=== PATIENT | female | born 1975 | race Caucasian/White ===

== ENCOUNTER 2017-11-05 12:20 | Emergency (ER) | payer SELFPAY ==
[2017-11-05] MEDS ORDERED: Albuterol 0.083% 2.5 MG/3 ML Neb Soln NEB ONE (13:12)
--- NOTE | 2017-11-05 13:16 | EDM.PDOC ---
ED HPI GENERAL MEDICAL PROBLEM - General Chief Complaint: Respiratory Problem Stated Complaint: SOB Time Seen by Provider: 11/05/17 13:05 Source of Information: Reports: Patient History Limitations: Reports: No Limitations - History of Present Illness INITIAL COMMENTS - FREE TEXT/NARRATIVE: Patient is a 41-year-old female with one-day history of sinus congestion, runny nose, productive cough, wheezing, and shortness of breath. States she's been unable to sleep throughout the night due to the shortness of breath. This is worse with activity. States her daughter had similar symptoms that were not as severe. Patient's had no documented fever. No change in appetite. Sore throat minimal. She does admit to smoking 4 cigarettes a day. Patient did take a prescription antibiotic from [place] yesterday. She believes she has bronchitis. She denies any documented fever, chest pain, nausea vomiting, abdominal pain, dysuria, and pain to lower extremities with swelling. She has no history of DVT or PE. 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 ED EXAM, GENERAL - Physical Exam Exam: See Below Exam Limited By: No Limitations General Appearance: Alert, WD/WN, No Apparent Distress Eye Exam: Bilateral Eye: Normal Inspection Ears: Hearing Grossly Normal Nose: Normal Inspection Throat/Mouth: Normal Inspection, Normal Oropharynx, Normal Voice, No Airway Compromise Neck: Normal Inspection, Supple, Non-Tender, Full Range of Motion Respiratory/Chest: No Respiratory Distress, Lungs Clear, Normal Breath Sounds, No Accessory Muscle Use, Chest Non-Tender Cardiovascular: Normal Peripheral Pulses, Tachycardia Peripheral Pulses: 4+: Radial (L), Radial (R) GI/Abdominal: Normal Bowel Sounds, Soft, Non-Tender, No Organomegaly, No Distention Back Exam: Normal Inspection Extremities: Normal Inspection, Normal Range of Motion, Non-Tender, No Pedal Edema Neurological: Alert, Oriented, CN II-XII Intact, Normal Cognition, No Motor/ Sensory Deficits Psychiatric: Normal Affect, Normal Mood Skin Exam: Warm, Dry, Intact, Normal Color, No Rash Course - Vital Signs Last Recorded V/S: Last Vital Signs Temp 99.0 F 11/05/17 18:33 Pulse 102 H 11/05/17 18:33 Resp 18 11/05/17 18:33 BP 157/104 H 11/05/17 18:33 Pulse Ox 90 L 11/05/17 18:33 - Orders/Labs/Meds Orders: Active Orders 24 hr Category Date Time Status EKG 12 Lead [EKG Documentation Completion] [RC] STAT Care 11/05/17 13:56 Active Peripheral IV Care [RC] . DIRECTED Care 11/05/17 13:55 Active RT Aerosol Therapy [RC] ASDIRECTED Care 11/05/17 13:12 Active RT Aerosol Therapy [RC] ASDIRECTED Care 11/05/17 13:40 Active CXR [Chest 2V] [CR] Stat Exams 11/05/17 13:12 Taken PE Chest [Ang Chest] [CT] Stat Exams 11/05/17 16:27 Taken CULTURE BLOOD [BC] Stat Lab 11/05/17 14:15 Received CULTURE BLOOD [BC] Stat Lab 11/05/17 14:23 Received CULTURE SPUTUM + SMEAR [RM] Stat Lab 11/05/17 18:25 Ordered UA W/MICROSCOPIC [URIN] Stat Lab 11/05/17 13:56 Ordered Blood Culture x2 Reflex Set [OM.PC] Stat Oth 11/05/17 13:55 Ordered Peripheral IV Insertion Adult [OM.PC] Routine Oth 11/05/17 13:55 Ordered Labs: Laboratory Tests 11/05/17 11/05/17 11/05/17 Range/Units 14:15 14:15 14:15 WBC 17.79 H (3.98-10.04) K/mm3 RBC 5.13 (3.98-5.22) M/mm3 Hgb 13.4 (11.2-15.7) gm/L Hct 39.9 (34.1-44.9) % MCV 77.8 L (79.4-94.8) fl MCH 26.1 (25.6-32.2) pg MCHC 33.6 (32.2-35.5) g/dl RDW Std Deviation 42.0 (36.4-46.3) fL Plt Count 233 (182-369) K/mm3 MPV 10.8 (9.4-12.3) fl Neutrophils % (Manual) 74 H (40-60) % Band Neutrophils % 0 (0-10) % Lymphocytes % (Manual) 22 (20-40) % Atypical Lymphs % 0 % Monocytes % (Manual) 4 (2-10) % Eosinophils % (Manual) 0 L (0.7-5.8) % Basophils % (Manual) 0 L (0.1-1.2) Platelet Estimate Adequate RBC Morph Comment Normal D-Dimer, Quantitative (0.19-0.50) mg/L Sodium 137 (136-145) mEq/L Potassium 3.4 L (3.5-5.1) mEq/L Chloride 101 (98-107) mEq/L Carbon Dioxide 26 (21-32) mEq/L Anion Gap 13.4 (5-15) BUN 9 (7-18) mg/dL Creatinine 0.8 (0.55-1.02) mg/dL Est Cr Clr Drug Dosing 73.93 mL/min Estimated GFR (MDRD) > 60 (>60) mL/min BUN/Creatinine Ratio 11.3 L (14-18) Glucose 109 H (74-106) mg/dL Lactic Acid 2.4 H (0.4-2.0) mmol/L Calcium 8.9 (8.5-10.1) mg/dL Total Bilirubin 0.5 (0.2-1.0) mg/dL AST 23 (15-37) U/L ALT 39 (14-59) U/L Alkaline Phosphatase 131 H (46-116) U/L Total Protein 8.2 (6.4-8.2) g/dl Albumin 3.4 (3.4-5.0) g/dl Globulin 4.8 gm/dL Albumin/Globulin Ratio 0.7 L (1-2) HCG, Qual (NEGATIVE) Mycoplasma pneumon IgM (NEGATIVE) 11/05/17 11/05/17 11/05/17 Range/Units 14:15 14:23 14:23 WBC (3.98-10.04) K/mm3 RBC (3.98-5.22) M/mm3 Hgb (11.2-15.7) gm/L Hct (34.1-44.9) % MCV (79.4-94.8) fl MCH (25.6-32.2) pg MCHC (32.2-35.5) g/dl RDW Std Deviation (36.4-46.3) fL Plt Count (182-369) K/mm3 MPV (9.4-12.3) fl Neutrophils % (Manual) (40-60) % Band Neutrophils % (0-10) % Lymphocytes % (Manual) (20-40) % Atypical Lymphs % % Monocytes % (Manual) (2-10) % Eosinophils % (Manual) (0.7-5.8) % Basophils % (Manual) (0.1-1.2) Platelet Estimate RBC Morph Comment D-Dimer, Quantitative 1.45 H (0.19-0.50) mg/L Sodium (136-145) mEq/L Potassium (3.5-5.1) mEq/L Chloride (98-107) mEq/L Carbon Dioxide (21-32) mEq/L Anion Gap (5-15) BUN (7-18) mg/dL Creatinine (0.55-1.02) mg/dL Est Cr Clr Drug Dosing mL/min Estimated GFR (MDRD) (>60) mL/min BUN/Creatinine Ratio (14-18) Glucose (74-106) mg/dL Lactic Acid (0.4-2.0) mmol/L Calcium (8.5-10.1) mg/dL Total Bilirubin (0.2-1.0) mg/dL AST (15-37) U/L ALT (14-59) U/L Alkaline Phosphatase (46-116) U/L Total Protein (6.4-8.2) g/dl Albumin (3.4-5.0) g/dl Globulin gm/dL Albumin/Globulin Ratio (1-2) HCG, Qual Negative (NEGATIVE) Mycoplasma pneumon IgM Negative (NEGATIVE) Meds: Medications Discontinued Medications Generic Name Dose Route Start Last Admin Trade Name Freq PRN Reason Stop Dose Admin Acetaminophen 975 mg 11/05/17 14:24 11/05/17 14:35 Tylenol PO 11/05/17 14:25 975 mg NOW ONE Administration Albuterol 2.5 mg 11/05/17 13:12 11/05/17 13:25 Proventil Neb Soln NEB 11/05/17 13:13 2.5 mg ONETIME ONE Administration Albuterol/Ipratropium 3 ml 11/05/17 13:40 11/05/17 13:57 Duoneb 3.0-0.5 Mg/3 Ml NEB 11/05/17 13:41 3 ml ONETIME ONE Administration Azithromycin 500 mg 11/05/17 17:53 11/05/17 18:37 Zithromax PO 11/05/17 17:54 500 mg DAILY ONE Administration Ceftriaxone Sodium 1 gm/ 0 gm 11/05/17 18:00 11/05/17 18:35 Lidocaine HCl 2.1 ml IM 1 inj Q24H ANH Administration Sodium Chloride 2,000 mls @ 999 mls/hr 11/05/17 13:55 11/05/17 14:37 Normal Saline IV 11/05/17 15:55 999 mls/hr ONETIME ONE Administration Sodium Chloride 100 mls @ 60 mls/hr 11/05/17 16:45 11/05/17 17:02 Normal Saline IV 60 mls/hr ASDIRECTED ANH Administration Iopamidol 100 ml 11/05/17 16:44 11/05/17 17:02 Isovue-370 (76%) IVPUSH 11/05/17 16:45 100 ml ONETIME ONE Administration Iopamidol 50 ml 11/05/17 16:57 11/05/17 17:02 Isovue-370 (76%) IVPUSH 11/05/17 16:58 50 ml ONETIME ONE Administration Prednisone 40 mg 11/05/17 13:40 11/05/17 13:49 Prednisone PO 11/05/17 13:41 40 mg ONETIME ONE Administration Sodium Chloride 10 ml 11/05/17 13:55 11/05/17 14:23 Saline Flush FLUSH 10 ml ASDIRECTED PRN Administration Keep Vein Open Sodium Chloride 10 ml 11/05/17 16:44 06/30/18 17:01 Saline Flush FLUSH 11/05/17 16:45 10 ml ONETIME ONE Administration - Re-Assessments/Exams Free Text/Narrative Re-Assessment/Exam: Ordered albuterol neb treatment and also chest x-ray two-view. Reassessment, no significant improvements note. Lungs sounds revealed more air being moved. I have spoken with respiratory and they will administer duoneb in 15 to 30 minutes. I have ordered prednisone and duoneb. Chest x-ray two-view impression: no acute findings. No findings concerning for pneumonia. Reviewed with Dr. Lew. Per nursing staff temp recheck: 101.1F. Prednisone was administered prior to checking. Patient was afebrile when I evaluated the patient. VSS. Suspected this was viral in etiology. I will order basic labs, ekg, and IV fluids. Labs to include: CBC, chem 14, blood cultures 2, lactic acid, UA, chest x-ray, EKG, and hCG. She is tachycardic. Complaining shortness of breath. I also ordered a d-dimer. 11/05/17 14:36 per nursing staff temp recheck 102F. Tylenol was ordered. Mycoplasma ordered. Labs reviewed: White blood cell count 17.79, hemoglobin 13.4, neutrophil percentage is 74, no left shift, d-dimer 1.45, potassium 3.4, glucose 109, and lactic acid 2.4. I have ordered CT of the chest with IV contrast PE protocol. CT chest negative for PE. Minimal nonspecific groundglass opacity. Ordered rocephin 1 gram IV and azithromycin 500mg po. Reassessment, VSS. She is afrebrile. She is feeling much better. I have opted to discharge patient home with prescription for albuterol inhaler and azithromycin. Patient has a upper respiratory infection. Mycoplasma was negative. Departure - Departure Time of Disposition: 18:14 Disposition: Home, Self-Care 01 Condition: Good Clinical Impression: Bronchitis - Discharge Information Prescriptions: Albuterol [Proventil HFA] 200 puff INH Q4H PRN #1 inhaler PRN Reason: Shortness Of Breath Azithromycin [Zithromax] 250 mg PO DAILY #4 tab Instructions: Upper Respiratory Infection, Adult, Metered Dose Inhaler (No Spacer Used), Acute Bronchitis, Adult, [id number] Referrals: PCP,None [Primary Care Provider] - Forms: ED Department Discharge Additional Instructions: Utilize albuterol inhaler 1-2 puffs every 4 hours as needed for wheezing, cough , shortness of breath. Take the azithromycin as prescribed and 50 mg every day for the next 4 days. Push the fluids.Ensure adequate rest. Followup with PCP of your choice at [facility] in [place] the end of this week for reevaluation. Return to the E.D. if you develop any new or worsening symptoms. - My Orders Last 24 Hours: My Active Orders 11/05/17 13:12 RT Aerosol Therapy [RC] ASDIRECTED CXR [Chest 2V] [CR] Stat 11/05/17 13:40 RT Aerosol Therapy [RC] ASDIRECTED 11/05/17 13:55 Peripheral IV Care [RC] . DIRECTED Blood Culture x2 Reflex Set [OM.PC] Stat Peripheral IV Insertion Adult [OM.PC] Routine 11/05/17 13:56 EKG 12 Lead [EKG Documentation Completion] [RC] STAT UA W/MICROSCOPIC [URIN] Stat 11/05/17 14:15 CULTURE BLOOD [BC] Stat 11/05/17 14:23 CULTURE BLOOD [BC] Stat 11/05/17 16:27 PE Chest [Ang Chest] [CT] Stat 11/05/17 18:25 CULTURE SPUTUM + SMEAR [RM] Stat - Assessment/Plan Last 24 Hours: My Active Orders 11/05/17 13:12 RT Aerosol Therapy [RC] ASDIRECTED CXR [Chest 2V] [CR] Stat 11/05/17 13:40 RT Aerosol Therapy [RC] ASDIRECTED 11/05/17 13:55 Peripheral IV Care [RC] . DIRECTED Blood Culture x2 Reflex Set [OM.PC] Stat Peripheral IV Insertion Adult [OM.PC] Routine 11/05/17 13:56 EKG 12 Lead [EKG Documentation Completion] [RC] STAT UA W/MICROSCOPIC [URIN] Stat 11/05/17 14:15 CULTURE BLOOD [BC] Stat 11/05/17 14:23 CULTURE BLOOD [BC] Stat 11/05/17 16:27 PE Chest [Ang Chest] [CT] Stat 11/05/17 18:25 CULTURE SPUTUM + SMEAR [RM] Stat
[2017-11-05] MEDS ORDERED: predniSONE 20 MG Tab PO ONE (13:40)
[2017-11-05] MEDS ORDERED: Albuterol/Ipratropium 3.0-0.5 MG/3 ML Neb Soln NEB ONE (13:40)
[2017-11-05] MEDS ORDERED: Sodium Chloride 0.9% 2,000 ML IV ONE (13:55)
[2017-11-05] MEDS ORDERED: Sodium Chloride 0.9% 10 ML Syringe FLUSH PRN (13:55)
[2017-11-05] MEDS ORDERED: Acetaminophen 325 MG Tab PO ONE (14:24)
[2017-11-05] MEDS ORDERED: Sodium Chloride 0.9% 10 ML Syringe FLUSH ONE (16:44)
[2017-11-05] MEDS ORDERED: Sodium Chloride 0.9% 100 ML IV SCH (16:45)
[2017-11-05] MEDS ORDERED: Iopamidol 755 MG/ML 50 ML Bottle IVPUSH ONE (16:57)
[2017-11-05] MEDS: Iopamidol 755 Mg/ML 100 ML Bottle IVPUSH ONE ×2 (17:01→17:02)
[2017-11-05] MEDS ORDERED: Azithromycin 250 MG Tab PO ONE (17:53)
[2017-11-05] MEDS ORDERED: cefTRIAXone 1 GM, Lidocaine 1% 2.1 ML IM SCH ×2 (18:00)
[2017-11-05 18:41] VITALS: BP 157/104
--- NOTE | 2017-11-07 07:29 | CR ---
Chest: Two views of the chest were obtained. Comparison: No prior chest x-ray is available. Heart size and mediastinum are within normal limits. Slight parenchymal density is noted within the left mid lung. Perihilar markings are minimally increased most likely representing bronchitis. Bony structures are unremarkable. Impression: 1. Probable slight bronchitis. Possible early left mid lung pneumonia. Diagnostic code #3
--- NOTE | 2017-11-07 07:29 | CT ---
CT chest Technique: Multiple axial sections through the chest were obtained. Intravenous contrast was utilized. Study has been performed as a pulmonary angiogram protocol. Findings: Pulmonary arteries are moderately well-opacified. No filling defects are seen to indicate pulmonary embolism. No pericardial thickening is seen. Diffuse fatty infiltration noted within the liver. Mediastinum and hilar regions show no adenopathy or mass. Patchy ground-glass appearance is seen within the lungs most likely representing mild bronchitis. Plain film study showed possible left mid lung pneumonia which is not definitely appreciated on the CT exam. Bone window settings were reviewed which show scattered degenerative spurring within the spine. Impression: 1. Ground-glass appearance most likely representing bronchitis. 2. No findings of pulmonary embolism. 3. Other incidental findings as noted above. Diagnostic code #3 I agree with preliminary report from [facility], finalized at 11/05/17, 6:44 PM Central Time
== END 2017-11-05 18:50 | disposition home or self-care (01) ==
LOC: JD.ED 12:20
DX: J40 Bronchitis, not specified as acute or chronic (principal); F17.210 Nicotine dependence, cigarettes, uncomplicated
CPT/HCPCS: 36415; 71046; 71275; 80053; 83605; 84703; 85007; 85027; 85379; 86738; 87040; 87070; 87205; 93005; 94640; 96360; 96361; 96372; 99285; A9270; J0696; J7030; J7040; J7050; Q9967; 99284